=== PATIENT | female | born 1990 | race Caucasian/White ===

== ENCOUNTER 2018-10-24 23:42 | Emergency (ER) | payer OTHER ==
[2018-10-24 23:58] VITALS: BP 135/95; PULSE 96; TEMP 98.8; BMI 25.2
--- NOTE | 2018-10-25 00:21 | PDOC ---
History of Present Illness - General Chief Complaint: Injury Stated Complaint: LT ELBOW INJURY Time Seen by Provider: 10/24/18 23:46 - History of Present Illness Initial Comments: This otherwise healthy 27-year-old woman presents with a history of slipping on an oily substance on the floor and falling at work a few hours prior to presentation . Patient states that she fell mainly on her left side (arm and leg.) She denies head/neck trauma/LOC. No shortness of breath/chest pain or abdominal pain. She has localized pain in the left elbow and left knee. On no daily medications No known allergies Denies smoking/daily alcohol use/other recreational drug use Past History - Past Medical History Allergies/Adverse Reactions: Allergies Allergy/AdvReac Type Severity Reaction Status Date / Time No Known Allergies Allergy Unverified 10/24/18 23:46 Home Medications: Ambulatory Orders Oxycodone HCl/Acetaminophen [Percocet 5-325 mg Tablet] 1 tab PO Q6H PRN #16 tablet MDD 4 tabs 10/25/18 COPD: No - Suicide/Smoking/Psychosocial Hx Smoking History: Never smoked Review of Systems - Review of Systems Able to Perform ROS?: Yes Comments:: 12 point review of systems is negative except for what is noted in the history of present illness *Physical Exam - Vital Signs Last Vital Signs Temp Pulse Resp BP Pulse Ox 98.8 F 96 H 18 135/95 96 10/24/18 23:50 10/24/18 23:50 10/24/18 23:50 10/24/18 23:50 10/24/18 23:50 - Physical Exam Comments: GENERAL:Adult female in mild distress secondary to left elbow/left knee pain HEAD: Normal with no signs of trauma. EYES: PERRLA, EOMI, sclera anicteric, conjunctiva clear. ENT: Ears normal, nares patent, oropharynx clear without exudates. Moist mucous membranes. NECK: Normal range of motion, supple without lymphadenopathy, JVD, or masses. LUNGS: Breath sounds equal, clear to auscultation bilaterally. No wheezes, and no crackles. HEART:Regular rate and rhythm, normal S1 and S2 without murmur, rub or gallop. ABDOMEN:.normal bowel sounds No guarding,tenderness or rebound.No masses No distention. EXTREMITIES: Left upper extremity-moderate edema/moderate tenderness/no deformity or ecchymosis Proximal forearm with pain on supination/pronation No wrist/distal forearm/hand pain or edema Radial pulse briskly palpable at the wrist Motor and sensory functioning intact distally Left knee2 cm x 2 cm circular, edematous, slightly ecchymotic area of midline anterior area is very tender but not deformed; no other edema or tenderness Remainder of extremity exam is normal NEUROLOGICAL: Cranial nerves II through XII grossly intact. Normal speech. No focal neurological deficits. MUSCULOSKELETAL: Back non-tender to palpation, no CVA tenderness SKIN: Warm, Dry, normal turgor, no rashes or lesions noted. ED Treatment Course - RADIOLOGY Radiology Studies Ordered: Category Date Time Status ELBOW-LEFT [RAD] Stat Radiology 10/25/18 00:15 Ordered KNEE 3 POS-LEFT [RAD] Stat Radiology 10/25/18 00:16 Ordered Progress Note - Progress Note Progress Note: Patient refused urinary test stating that "it is impossible" that she could be . Left elbow/left knee x-ray performed. Preliminary interpretation by me: Nondisplaced radial head fracture. No other acute fracture/dislocation or other abnormality seen on xrays Results discussed with the patient and her mother. Using Ortho-Glass material, sugar tong forearm splint fashioned and secured with Alfredo wraps. Neurovascular functioning intact after the placement of the splint. Left arm placed in sling. Patient had received Motrin earlier but continued to be in pain. 1 tablet of Percocet 5/325 given to the patient for pain relief. Patient will follow-up with family orthopedist, . Office will be called on Friday, October 26 and follow-up arranged within 48 hours Meanwhile, patient will elevate the left arm as much as possible/ice to elbow for the next 2 days. Tylenol as needed for mild to moderate pain; Percocet 5/ 325 as needed for severe pain. Prescription for Percocet 5/325, #16, to be used as needed for severe pain up to 4 times a day, sent to her pharmacy. *DC/Admit/Observation/Transfer Diagnosis at time of Disposition: Radial head fracture, closed Qualifiers: Encounter type: initial encounter Fracture alignment: nondisplaced Laterality: left Qualified Code(s): S52.125A - Nondisplaced fracture of head of left radius , initial encounter for closed fracture Contusion, knee Qualifiers: Encounter type: initial encounter Laterality: left Qualified Code(s): S80.02XA - Contusion of left knee, initial encounter - Discharge Dispostion Disposition: HOME Condition at time of disposition: Stable - Prescriptions Prescriptions: Oxycodone HCl/Acetaminophen [Percocet 5-325 mg Tablet] 1 tab PO Q6H PRN #16 tablet MDD 4 tabs PRN Reason: Severe Pain - Referrals Referrals: Benigno Ty MD [Primary Care Provider] - - Patient Instructions Printed Discharge Instructions: Elbow Fracture Additional Instructions: Keep splint in place until seen by orthopedist Elevate elbow at heart level or above at all times; use sling when up and around Ice to elbow for the next 2 days Tylenol as needed for mild pain/Percocet 5/325 up to 4 times a day as needed for severe pain Alfredo wrap to left knee during the day for the next week Call your orthopedist, Dr. Mera, on October 26 arrange follow-up within the next 48 hours - Post Discharge Activity
== END 2018-10-25 01:33 | disposition home or self-care (01) ==
LOC: FER 23:42
PROC: 2W3DX1Z Immobilization of Left Lower Arm using Splint (ICD-10-PCS; principal; 2018-10-24)
DX: S52.125A Nondisplaced fracture of head of left radius, initial encounter for closed fracture (principal); S80.02XA Contusion of left knee, initial encounter; W01.0XXA Fall on same level from slipping, tripping and stumbling without subsequent striking against object, initial encounter; Y93.89 Activity, other specified; Y92.89 Other specified places as the place of occurrence of the external cause; Y99.0 Civilian activity done for income or pay
CPT/HCPCS: 73070-TC-LT-FY; 73562-TC-LT-FY; 99282-25